=== PATIENT | female | born 1990 | race Caucasian/White ===

== ENCOUNTER 2016-11-06 05:40 | Emergency (ER) | payer MEDICAID ==
[~2016-11-06 05:40] MED LIST: COL100 PO; NORCO1 TA2 PO
[2016-11-06 06:55] VITALS: BP 128/79
== END 2016-11-06 06:55 | disposition home or self-care (01) ==
LOC: ED 05:40
DX: S46.912A Strain of unspecified muscle, fascia and tendon at shoulder and upper arm level, left arm, initial encounter (principal); V49.50XA Passenger injured in collision with unspecified motor vehicles in traffic accident, initial encounter; Y93.I9 Activity, other involving external motion; Y92.488 Other paved roadways as the place of occurrence of the external cause; Y99.8 Other external cause status
CPT/HCPCS: Q0092